=== PATIENT | male | born 1970 | race Two or more races ===

== ENCOUNTER 2017-01-11 12:45 | Inpatient (IN) | payer MEDICAID ==
[~2017-01-11] VITALS: Ht 177.8 cm; Wt 85.6 kg
[~2017-01-11 12:45] MED LIST: PROP60CA8 PO
[2017-01-11 13:44] LABS: Basophils # (auto) 0.1 uL; Eosinophils # (auto) 0 uL; Hemoglobin 8.3 g/dL (13.5-17.5); Lymphocytes # (auto) 0.9 uL; Monocytes # (auto) 0.8 uL; Neutrophils # (auto) 9.6 uL
[2017-01-11 13:46] LABS: Basophils % (auto) 0.9 % (0.0-2.0); Hematocrit 25.2 % (41.0-53.0); Mean Corpuscular Hgb Conc. 32.9 g/dL (32.0-36.0); Mean Corpuscular Volume 91.2 fL (80.0-100.0); Mean Platelet Volume 8.1 fL (6.9-10.8); Monocytes % (auto) 7.1 % (0.0-12.0); Platelet Count (auto) 178 10^3/uL (140-450); Red Cell Distribution Width 19.2 % (11.8-14.3); White Blood Cell 11.4 10^3/uL (4.4-10.8)
[2017-01-11] MEDS ORDERED: SODIUM CHLORIDE 0.9% 1,000 ML IV ONE ×2 (14:05→23:30)
[2017-01-11 14:06] LABS: Albumin 3.2 g/dL (3.4-5.0); Total Protein 7.5 g/dL (6.4-8.2)
[2017-01-11] MEDS ORDERED: PANTOPRAZOLE 80 MG in SODIUM CHL 0.9% 60 ML IV ONE ×2 (14:15→23:30)
[2017-01-11] MEDS ORDERED: PANTOPRAZOLE 40 MG TAB PO ONE (14:15)
[2017-01-11] MEDS ORDERED: THIAMINE INJ 100 MG, MULTIPLE VITAMIN 10 ML, FOLIC ACID 1 MG, MAGNESIUM SULF SDV 50% 8 ... IV ONE ×5 (15:00)
[2017-01-11] MEDS ORDERED: PROMETHAZINE HCL 25 MG/ML 1ML IV ONE (15:15)
[2017-01-11 15:35] LABS: Magnesium 1.3 mg/dL (1.6-2.6)
[2017-01-11 15:43] LABS: INR 1.13 (0.9-1.15); Partial Thromboplastin Time 24.3 sec (22.64-33.71); Prothrombin Time 12.3 sec (9.37-12.3)
[2017-01-11] MEDS ORDERED: PROCHLORPERAZINE EDISYLATE 5 MG/ML 2ML VIAL IV ONE (15:45)
[2017-01-11] MEDS ORDERED: LACTULOSE 20Gm/30ML SOLN PO ONE (16:15)
[2017-01-11] MEDS ORDERED: POTASSIUM CHL 10% (20 MEQ/15ML) 15ml ORAL SOLN PO ONE (16:15)
[2017-01-11] MEDS: MAGNESIUM SULFATE 1GM/100ML 100 ML IV SCH ×3 (17:07→18:16)
[2017-01-11 22:35] LABS: Urine Bilirubin Negative (Negative); Urine Blood Negative /uL (Negative); Urine Color Yellow (Yellow); Urine Glucose Normal (Normal); Urine Ketone 1+ (Negative); Urine Mucus FEW (None Seen); Urine Nitrite Negative (Negative); Urine RBC <1 /hpf (0 - 3); Urine Urobilinogen Normal (Negative); Urine pH 5.5 (5.0-8.0)
[2017-01-11] MEDS ORDERED: PANTOPRAZOLE 40 MG/10 ML VIAL IV ONE (23:21)
[2017-01-12] VITALS (8 sets, daily range): BP systolic 118–128; BP diastolic 59–78
[2017-01-12] MEDS ORDERED: cefTRIAXone 1GM/50ML D5W 50 ML IV ONE
[2017-01-12] MEDS ORDERED: ONDANSETRON HCL 4 MG/2 ML VIAL IV PRN
[2017-01-12] MEDS: SODIUM CHLORIDE 0.9% 1,000 ML IV SCH ×3 (00:45→20:12)
[2017-01-12] MEDS ORDERED: OCTREOTIDE ACETATE 500 MCG/ML VL ONE (00:48)
[2017-01-12] MEDS: OCTREOTIDE ACETATE 500 MCG in SODIUM CHL 0.9% 99 ML IV SCH ×3 (01:04→19:57)
[2017-01-12] MEDS ORDERED: LORazepam 2MG/ML-1ML VIAL IV PRN (03:15)
[2017-01-12 06:10] LABS: Basophils # (auto) 0.2 uL; Basophils % (auto) 1.5 % (0.0-2.0); Eosinophils # (auto) 0.4 uL; Lymphocytes # (auto) 1.5 uL; Lymphocytes % (auto) 13.6 % (10.0-50.0); Mean Corpuscular Volume 90.6 fL (80.0-100.0)
[2017-01-12 06:15] LABS: Eosinophils % (auto) 3.4 % (0.0-7.0); Hematocrit 20.6 % (41.0-53.0); Mean Corpuscular Hgb Conc. 33.1 g/dL (32.0-36.0); Mean Platelet Volume 8.2 fL (6.9-10.8); Monocytes # (auto) 0.9 uL; Monocytes % (auto) 7.8 % (0.0-12.0); Neutrophils # (auto) 8.2 uL; Neutrophils % (auto) 73.7 % (37.0-80.0); Platelet Count (auto) 145 10^3/uL (140-450); Red Cell Distribution Width 19.7 % (11.8-14.3); White Blood Cell 11.1 10^3/uL (4.4-10.8)
[2017-01-12 06:19] LABS: Hemoglobin 6.8 g/dL (13.5-17.5)
[2017-01-12 06:28] LABS: Albumin 2.8 g/dL (3.4-5.0); BUN/Creatinine Ratio 36.1; Calcium 7.1 mg/dL (8.5-10.1); Potassium 3.1 mmol/L (3.5-5.1); Total Protein 6.4 g/dL (6.4-8.2)
[2017-01-12 11:18] LABS: Hematocrit 22.1 % (41.0-53.0); Hemoglobin 7.3 g/dL (13.5-17.5)
[2017-01-12] MEDS: LACTULOSE 20Gm/30ML SOLN PO SCH ×2 (11:21→22:36)
[2017-01-12] MEDS: chlordiazePOXIDE HCL 25 MG CAP PO PRN ×3 (11:22→22:48)
[2017-01-12] MEDS: PANTOPRAZOLE 40 MG/10 ML VIAL IV SCH ×2 (11:22→22:36)
[2017-01-12] MEDS: THIAMINE INJ 100 MG, MULTIPLE VITAMIN 10 ML, FOLIC ACID 1 MG, MAGNESIUM SULF SDV 50% 8 ... IV SCH ×5 (12:10)
[2017-01-12] MEDS: HYDROmorphone HCL 2 MG/ML VL IV PRN ×2 (16:17→20:25)
[2017-01-12 18:28] LABS: Hematocrit 23.1 % (41.0-53.0); Hemoglobin 7.7 g/dL (13.5-17.5)
[2017-01-12] MEDS: POTASSIUM CHL 20 Meq TABLET PO SCH (22:36)
[2017-01-13] VITALS (10 sets, daily range): BP systolic 123–142; BP diastolic 62–78
[2017-01-13 00:40] LABS: Hematocrit 21.1 % (41.0-53.0)
[2017-01-13] MEDS: HYDROmorphone HCL 2 MG/ML VL IV PRN ×2 (00:48→20:55)
[2017-01-13 00:59] LABS: Hemoglobin 6.9 g/dL (13.5-17.5)
[2017-01-13] MEDS: SODIUM CHLORIDE 0.9% 1,000 ML IV SCH (05:43)
[2017-01-13] MEDS: OCTREOTIDE ACETATE 500 MCG in SODIUM CHL 0.9% 99 ML IV SCH (05:59)
[2017-01-13 10:00] LABS: Hematocrit 26.6 % (41.0-53.0); Hemoglobin 8.8 g/dL (13.5-17.5)
[2017-01-13] MEDS: POTASSIUM CHL 20 Meq TABLET PO SCH ×2 (10:00→20:53)
[2017-01-13] MEDS: LACTULOSE 20Gm/30ML SOLN PO SCH ×2 (10:00→20:55)
[2017-01-13] MEDS ORDERED: SODIUM CHLORIDE LOCK 10 ML ONE (10:05)
[2017-01-13] MEDS ORDERED: LIDOCAINE VISCOUS 2% 15ML UD ONE (10:05)
[2017-01-13] MEDS ORDERED: diphenhdrAMINE HCL 50 MG/1 ML VL ONE (10:06)
[2017-01-13] MEDS ORDERED: fentaNYL CITRATE 100 MCG/2 ML VL ONE (10:06)
[2017-01-13] MEDS ORDERED: MIDAZOLAM HCL 5 MG/ML-1ML VIAL ONE (10:06)
[2017-01-13] MEDS ORDERED: NALOXONE HCL 0.4 MG/ML VIAL ONE (10:07)
[2017-01-13] MEDS ORDERED: FLUMAZENIL 0.1 MG/ML INJ 10ML MDV IV ONE (10:07)
[2017-01-13 10:35] LABS: BUN/Creatinine Ratio 14.5; Calcium 7.1 mg/dL (8.5-10.1); Potassium 3.9 mmol/L (3.5-5.1)
[2017-01-13] MEDS ORDERED: CIPROFLOXACIN HCL 500 MG TAB PO ONE (12:30)
[2017-01-13] MEDS: THIAMINE INJ 100 MG, MULTIPLE VITAMIN 10 ML, FOLIC ACID 1 MG, MAGNESIUM SULF SDV 50% 8 ... IV SCH ×5 (13:21)
[2017-01-13 14:05] LABS: Hematocrit 28.7 % (41.0-53.0); Hemoglobin 9.4 g/dL (13.5-17.5)
[2017-01-13] MEDS: PROPRANOLOL HCL 20 MG TAB PO SCH ×2 (14:13→20:54)
[2017-01-13 18:10] LABS: Hematocrit 27.3 % (41.0-53.0)
[2017-01-14 05:00] VITALS: BP 136/66
[2017-01-14] MEDS: HYDROmorphone HCL 2 MG/ML VL IV PRN ×2 (05:46→11:18)
[2017-01-14] MEDS: PROPRANOLOL HCL 20 MG TAB PO SCH (05:46)
[2017-01-14] MEDS: SODIUM CHLORIDE 0.9% 1,000 ML IV SCH ×2 (05:48→05:49)
[2017-01-14 06:45] LABS: Calcium 7.4 mg/dL (8.5-10.1); Potassium 3.4 mmol/L (3.5-5.1)
[2017-01-14 06:48] LABS: BUN/Creatinine Ratio 7.8
[2017-01-14 08:51] VITALS: BP 131/76
[2017-01-14] MEDS: POTASSIUM CHL 20 Meq TABLET PO SCH (10:00)
[2017-01-14] MEDS: LACTULOSE 20Gm/30ML SOLN PO SCH (10:00)
[2017-01-14] MEDS ORDERED: CIPROFLOXACIN HCL 500 MG TAB PO SCH ×2 (10:00→22:00)
[2017-01-14 13:24] VITALS: BP 142/89
[2017-01-14 14:00] VITALS: BP 136/66
[2017-01-26] MEDS ORDERED: LACT10SO3 PO (17:37)
[2017-01-26] MEDS ORDERED: PROP60CA8 PO (19:00)
[2017-01-26] MEDS ORDERED: PROP1TAB59 PO (19:00)
[2017-01-28] MEDS ORDERED: CIP250T PO (11:47)
[2017-01-28] MEDS ORDERED: MULTTAB99 PO (11:47)
[2017-01-28] MEDS ORDERED: GABA-497 PO (11:47)
[2017-01-28] MEDS ORDERED: AML5T PO (11:47)
== END 2017-01-14 15:04 | disposition home or self-care (01) | DRG 280 ==
LOC: ER 12:45 → OVERFLOW 12:46 → EAST 01-12 10:01
PROVIDERS: ADMIT Nurse Practitioner Family; ATTEND Internal Medicine Pulmonary Disease
PROC: 30233N1 Transfusion of Nonautologous Red Blood Cells into Peripheral Vein, Percutaneous Approach (ICD-10-PCS; 2017-01-12)
PROC: 0DJ08ZZ Inspection of Upper Intestinal Tract, Via Natural or Artificial Opening Endoscopic (ICD-10-PCS; principal; 2017-01-13 11:48)
DX: K70.30 Alcoholic cirrhosis of liver without ascites (principal); K76.6 Portal hypertension; K72.90 Hepatic failure, unspecified without coma; I85.10 Secondary esophageal varices without bleeding; E44.1 Mild protein-calorie malnutrition; E83.42 Hypomagnesemia; D50.0 Iron deficiency anemia secondary to blood loss (chronic); F10.10 Alcohol abuse, uncomplicated; E87.6 Hypokalemia; K31.89 Other diseases of stomach and duodenum; F17.210 Nicotine dependence, cigarettes, uncomplicated; K80.20 Calculus of gallbladder without cholecystitis without obstruction; N20.0 Calculus of kidney; Z90.81 Acquired absence of spleen; Z87.442 Personal history of urinary calculi; Z83.3 Family history of diabetes mellitus; Z68.27 Body mass index [BMI] 27.0-27.9, adult
CPT/HCPCS: 36415; 43235; 80048; 80053; 81001; 82140; 83690; 83735; 85014; 85018; 85025; 85610; 85730; 86850; 86900; 86901; 86920; 93005; 94761; 96365; 96375; C9113; J0696; J2250; J2405

== ENCOUNTER 2019-02-19 21:09 | Emergency (ER) | payer MEDICAID ==
[~2019-02-19] VITALS: Ht 177.8 cm; Wt 113.4 kg
[~2019-02-19 21:09] MED LIST changes: +AML5T PO; +CIP250T PO; +GABA300C10 PO; +LACT10SO3 PO; +MULTTAB99 PO; +PROP1TAB59 PO; -PROP60CA8 PO
[2019-02-19 22:15] LABS: Basophils # (auto) 0.1 uL
[2019-02-19 22:21] LABS: Monocytes # (auto) 0.8 uL
[2019-02-19 22:23] LABS: Basophils % (auto) 0.8 % (0.0-2.0); Eosinophils # (auto) 0.3 uL; Eosinophils % (auto) 3.8 % (0.0-7.0); Hematocrit 46.4 % (41.0-53.0); Hemoglobin 15.6 g/dL (13.5-17.5); Lymphocytes % (auto) 22.6 % (10.0-50.0); Mean Corpuscular Hgb Conc. 33.7 g/dL (32.0-36.0); Mean Corpuscular Volume 103.9 fL (80.0-100.0); Monocytes % (auto) 8.7 % (0.0-12.0); Neutrophils # (auto) 5.7 uL; Neutrophils % (auto) 64.1 % (37.0-80.0); Nucleated Red Blood Cells % 0.2 %; Platelet Count (auto) 164 10^3/uL (140-450); Red Blood Cells 4.46 10^6/uL (4.5-5.90); Red Cell Distribution Width 15.8 % (11.8-14.3)
[2019-02-19 22:30] LABS: Salicylate < 1.7 mg/dL (2.8-20.0)
[2019-02-19] MEDS ORDERED: THIAMINE INJ 100 MG in SODIUM CHLORIDE 0.9% 1,000 ML IV ONE (22:30)
[2019-02-19] MEDS ORDERED: SODIUM CHLORIDE 0.9% 1,000 ML IV ONE (22:30)
[2019-02-19 22:31] LABS: Albumin 3.2 g/dL (3.4-5.0); BUN/Creatinine Ratio 11.6; Calcium 8.4 mg/dL (8.5-10.1); Potassium 3.4 mmol/L (3.5-5.1)
[2019-02-19 22:35] LABS: Bilirubin, Total 0.7 mg/dL (0.2-1.0); Total Protein 8.7 g/dL (6.4-8.2)
[2019-02-19 22:43] LABS: Acetaminophen < 2.0 ug/mL (10-30)
[2019-02-19] MEDS ORDERED: THIAMINE 100mg/ml INJ (200mg/2ml VIAL) IV ONE (22:45)
[2019-02-19] MEDS: SODIUM CHLORIDE 0.9% 1,000 ML IV ONE ×2 (23:23→23:55)
[2019-02-19 23:45] LABS: Urine Bacteria NONE SEEN /hpf (None Seen); Urine Blood 3+ /uL (Negative); Urine Mucus FEW (None Seen); Urine Specific Gravity 1.007 (1.001-1.035); Urine WBC 2 /hpf (0 - 3)
[2019-02-20 00:01] LABS: Amphetamine Screen, Urine NEGATIVE (NEGATIVE); Barbiturate Scree,Urine NEGATIVE (NEGATIVE); Benzodiazephine Screen, Urine NEGATIVE (NEGATIVE); Cannabinoid Screen, Urine NEGATIVE (NEGATIVE); Cocaine Screen, Urine NEGATIVE (NEGATIVE); Opiate Scree,Urine NEGATIVE (NEGATIVE); Phencyclidine Screen, Urine NEGATIVE (NEGATIVE)
[2019-02-20 01:30] VITALS: BP 111/65
== END 2019-02-20 02:59 | disposition home or self-care (01) ==
LOC: EDBD 21:09 → ER 21:12
DX: F10.129 Alcohol abuse with intoxication, unspecified (principal); F17.210 Nicotine dependence, cigarettes, uncomplicated; J45.909 Unspecified asthma, uncomplicated; Y90.0 Blood alcohol level of less than 20 mg/100 ml
CPT/HCPCS: 36415; 80053; 80307; 80320; 80329; 81001; 85025; 96374; 99283; J3411; J7030

== ENCOUNTER 2020-01-11 09:43 | Emergency (ER) | payer MEDICAID ==
[~2020-01-11] VITALS: Ht 182.9 cm; Wt 99.8 kg
[2020-01-11 10:42] LABS: Basophils # (auto) 0.1 10 ^3/uL (0-0.2); Basophils % (auto) 1.3 % (0.0-2.0); Eosinophils # (auto) 0.2 10 ^3/uL (0-0.8); Eosinophils % (auto) 2.8 % (0.0-7.0); Hemoglobin 11.4 g/dL (13.5-17.5); Lymphocytes # (auto) 1.5 10 ^3/uL (0.4-5.4); Lymphocytes % (auto) 21.9 % (10.0-50.0); Mean Corpuscular Hemoglobin 36.6 pg (28.0-32.0); Mean Corpuscular Hgb Conc. 34.5 g/dL (32.0-36.0); Mean Corpuscular Volume 106.1 fL (80.0-100.0); Monocytes # (auto) 0.4 10 ^3/uL (0-1.3); Monocytes % (auto) 6.3 % (0.0-12.0); Neutrophils # (auto) 4.6 10 ^3/uL (1.6-8.6); Neutrophils % (auto) 67.7 % (37.0-80.0); Nucleated Red Blood Cells % 0.3 %; Platelet Count (auto) 110 10^3/uL (140-450); Red Blood Cells 3.11 10^6/uL (4.5-5.90); Red Cell Distribution Width 17.6 % (11.8-14.3); White Blood Cell 6.8 10^3/uL (4.4-10.8)
[2020-01-11] MEDS ORDERED: SODIUM CHLORIDE 0.9% 1,000 ML IV ONE (10:45)
[2020-01-11 10:46] LABS: Albumin 2.4 g/dL (3.4-5.0); Calcium 7.9 mg/dL (8.5-10.1); Magnesium 2.1 mg/dL (1.6-2.6); Potassium 3.3 mmol/L (3.5-5.1)
[2020-01-11 10:50] LABS: BUN/Creatinine Ratio 7.1; Bilirubin, Total 4.2 mg/dL (0.2-1.0); Total Protein 7.9 g/dL (6.4-8.2)
[2020-01-11 10:56] LABS: Acetaminophen < 2.0 ug/mL (10-30); Salicylate < 1.7 mg/dL (2.8-20.0)
[2020-01-11] MEDS ORDERED: LIDOCAINE 1% (LOCAL ANESTH.) PF 5ml SDV ID ONE (11:15)
[2020-01-11] MEDS ORDERED: NEOMYCIN-BACITRACIN-POLYM UNITDOSE PKG TOP OINT TOP ONE (11:15)
[2020-01-11 16:05] VITALS: BP 119/64
== END 2020-01-11 16:23 | disposition home or self-care (01) ==
LOC: ER 09:43 → EDBD 09:43 → ER 16:23
DX: S02.2XXA Fracture of nasal bones, initial encounter for closed fracture (principal); S09.8XXA Other specified injuries of head, initial encounter; F10.10 Alcohol abuse, uncomplicated; F17.210 Nicotine dependence, cigarettes, uncomplicated; Z79.899 Other long term (current) drug therapy; W19.XXXA Unspecified fall, initial encounter; Y93.89 Activity, other specified; Y92.89 Other specified places as the place of occurrence of the external cause; Y99.8 Other external cause status
CPT/HCPCS: 36415; 70450; 70486; 71045; 72125; 80053; 80320; 80329; 83735; 85025; 93005; 96360; 99285; J7030

== ENCOUNTER 2020-01-15 16:26 | Emergency (ER) | payer MEDICAID ==
[~2020-01-15] VITALS: Ht 177.8 cm; Wt 81.6 kg
[2020-01-15] MEDS ORDERED: cefTRIAXone W LIDOCAINE 1 GM IM IM ONE (17:15)
[2020-01-15 18:00] VITALS: BP 114/48
== END 2020-01-15 18:18 | disposition home or self-care (01) ==
LOC: EDBD 16:26 → ER 16:26 → EDUNIT# 16:26 → ER 18:18
DX: S01.81XD Laceration without foreign body of other part of head, subsequent encounter (principal); F17.210 Nicotine dependence, cigarettes, uncomplicated; Z79.899 Other long term (current) drug therapy; X58.XXXD Exposure to other specified factors, subsequent encounter
CPT/HCPCS: 96372; 99283; J0696

== ENCOUNTER 2020-02-26 14:23 | Inpatient (IN) | payer MEDICAID ==
[~2020-02-26] VITALS: Ht 175.3 cm; Wt 79.4 kg
[2020-02-26 16:05] LABS: Albumin 1.6 g/dL (3.4-5.0); BUN/Creatinine Ratio 8.4; Calcium 7.5 mg/dL (8.5-10.1); Potassium 4.7 mmol/L (3.5-5.1)
[2020-02-26 16:10] LABS: Bilirubin, Total 5.7 mg/dL (0.2-1.0); Total Protein 4.9 g/dL (6.4-8.2)
[2020-02-26] MEDS ORDERED: SODIUM CHLORIDE 0.9% 2,000 ML IV ONE (16:30)
[2020-02-26] MEDS ORDERED: THIAMINE 100mg/ml INJ (200mg/2ml VIAL) IV ONE (17:00)
[2020-02-26] MEDS ORDERED: FOLIC ACID 1 MG, MULTIPLE VITAMIN 10 ML, MAGNESIUM SULF SDV 50% 8 MEQ, THIAMINE INJ 100... INJ STA ×5 (17:00)
[2020-02-26] MEDS ORDERED: LACTULOSE 20Gm/30ML SOLN PO ONE (17:00)
[2020-02-26] MEDS: NOREPINEPHRINE 8 MG/250ML KIT 250 ML IV SCH (17:47)
[2020-02-26] MEDS ORDERED: LORazepam 2MG/ML-1ML VIAL IV PRN (18:15)
[2020-02-26] MEDS ORDERED: MAGNESIUM SULFATE 1GM/100ML 100 ML IV SCH (18:15)
[2020-02-26] MEDS ORDERED: NITROGLYCERIN 0.4 MG SL TAB SL PRN (18:15)
[2020-02-26] MEDS ORDERED: MORPHINE SULF INJ 2 MG/ML SYRINGE 1ML IV PRN ×2 (18:15→18:30)
[2020-02-26] MEDS ORDERED: ACETAMINOPHEN 325 MG TAB PO PRN (18:30)
[2020-02-26] MEDS ORDERED: ONDANSETRON HCL 4 MG/2 ML VIAL IV PRN (18:30)
[2020-02-26] MEDS: cefTRIAXone 1GM/50ML D5W 50 ML IV SCH (18:56)
[2020-02-26 19:28] LABS: Hematocrit 12.2 % (41.0-53.0); Mean Corpuscular Hemoglobin 39.6 pg (28.0-32.0); Mean Corpuscular Hgb Conc. 32.3 g/dL (32.0-36.0); Mean Corpuscular Volume 122.4 fL (80.0-100.0); Platelet Count (auto) 58 10^3/uL (140-450); Red Cell Distribution Width 18.7 % (11.8-14.3)
[2020-02-26 19:44] LABS: INR 2.47 (0.9-1.15)
[2020-02-26 19:46] LABS: Basophils % (manual) 0 (0.0-2.0); Blast Cells 0; Eosinophils % (manual) 0 (0-7); Metamyelocytes % 0; Myelocytes % 0; Promyelocytes % 0; Reactive Lymphocytes 0
[2020-02-26 20:05] LABS: Band Neutrophils % (manual) 5; Lymphocytes % (manual) 8 (10.0-50.0); Monocytes % (manual) 6 (0-12)
[2020-02-26] MEDS: MAGNESIUM SULFATE 1GM/100ML 100 ML IV SCH ×2 (21:15→23:01)
[2020-02-26] MEDS: SODIUM BICARBONATE 50ML VIAL 50 ML in D5W/SOD CHL 0.45% 1,000 ML IV SCH (21:15)
[2020-02-26] MEDS ORDERED: LACTULOSE 20Gm/30ML SOLN PO SCH (22:00)
[2020-02-26] MEDS: chlordiazePOXIDE HCL 5 MG CAP PO SCH (23:10)
[2020-02-26 23:37] VITALS: BP 105/33
[2020-02-26 23:55] VITALS: BP 111/24
[2020-02-27] VITALS (18 sets, daily range): BP systolic 67–133; BP diastolic 10–71
[2020-02-27] MEDS: SODIUM BICARBONATE 50ML VIAL 50 ML in D5W/SOD CHL 0.45% 1,000 ML IV SCH ×2 (04:45→14:35)
[2020-02-27] MEDS: chlordiazePOXIDE HCL 5 MG CAP PO SCH ×2 (06:25→14:35)
[2020-02-27] MEDS: cefTRIAXone 1GM/50ML D5W 50 ML IV SCH (08:46)
[2020-02-27 10:58] LABS: Hemoglobin 7.2 g/dL (13.5-17.5)
[2020-02-27 11:01] LABS: Hematocrit 22.8 % (41.0-53.0); Mean Corpuscular Hemoglobin 32.6 pg (28.0-32.0); Mean Corpuscular Hgb Conc. 31.5 g/dL (32.0-36.0); Mean Corpuscular Volume 103.4 fL (80.0-100.0); Platelet Count (auto) 50 10^3/uL (140-450); Red Blood Cells 2.21 10^6/uL (4.5-5.90); White Blood Cell 17.8 10^3/uL (4.4-10.8)
[2020-02-27 11:14] LABS: Red Cell Distribution Width 20.9 % (11.8-14.3)
[2020-02-27 11:15] LABS: Albumin 1.8 g/dL (3.4-5.0); Basophils % (manual) 0 (0.0-2.0); Blast Cells 0; Calcium 7.9 mg/dL (8.5-10.1); Eosinophils % (manual) 0 (0-7); Magnesium 2.9 mg/dL (1.6-2.6); Metamyelocytes % 0; Myelocytes % 0; Promyelocytes % 0; Reactive Lymphocytes 0
[2020-02-27 11:23] LABS: Bilirubin, Total 7.3 mg/dL (0.2-1.0); Total Protein 5.2 g/dL (6.4-8.2)
[2020-02-27 11:34] LABS: Band Neutrophils % (manual) 3; Lymphocytes % (manual) 7 (10.0-50.0); Monocytes % (manual) 5 (0-12)
[2020-02-27] MEDS ORDERED: FOLIC ACID 1 MG, MULTIPLE VITAMIN 10 ML, MAGNESIUM SULF SDV 50% 8 MEQ, THIAMINE INJ 100... INJ SCH ×5 (12:00)
[2020-02-27] MEDS: NOREPINEPHRINE 8 MG/250ML KIT 250 ML IV SCH ×2 (12:24→22:00)
[2020-02-27] MEDS ORDERED: LACTULOSE 20Gm/30ML SOLN PO SCH (14:00)
[2020-02-27] MEDS: MIDAZOLAM DRIP 50 mg/50mL 50 ML IV SCH (16:00)
[2020-02-27] MEDS ORDERED: LORazepam 2MG/ML-1ML VIAL ONE (16:18)
[2020-02-27] MEDS ORDERED: PROPOFOL 100 ML IV ONE (16:20)
[2020-02-27] MEDS ORDERED: OCTREOTIDE ACETATE 100 MCG in SODIUM CHL 0.9% 50 ML IV ONE (17:00)
[2020-02-27] MEDS ORDERED: PROPOFOL 100 ML IV SCH (17:00)
[2020-02-27] MEDS ORDERED: PANTOPRAZOLE 40 MG/10 ML VIAL INJ IV SCH (17:00)
[2020-02-27] MEDS ORDERED: OCTREOTIDE ACETATE 500 MCG in SODIUM CHL 0.9% 99 ML IV SCH (17:00)
[2020-02-27] MEDS: OCTREOTIDE ACETATE 500 MCG in SODIUM CHL 0.9% 99 ML IV SCH (17:21)
[2020-02-27] MEDS: DOPamine 1600MCG/ML D5W 250 ML IV SCH (18:32)
[2020-02-27] MEDS ORDERED: SODIUM BICARBONATE 8.4 % INJ 50ML VIAL IV ONE (19:00)
[2020-02-27] MEDS ORDERED: SODIUM BICARBONATE 8.4% INJ 50ML SYRINGE ONE (19:35)
[2020-02-27] MEDS ORDERED: PHENYLEPHRINE IV 250 ML IV ONE (20:16)
[2020-02-27] MEDS ORDERED: EPINEPHrine HCL 1 MG/10 ML SYRG IV ONE (20:27)
[2020-02-27] MEDS ORDERED: SODIUM BICARBONATE 8.4% INJ 50ML SYRINGE IV ONE (20:27)
[2020-02-27] MEDS ORDERED: VASOPRESSIN 50 UNITS in D5W 5% 247.5 ML IV SCH (20:45)
[2020-02-27 20:49] LABS: Urine Bacteria FEW /hpf (None Seen); Urine Blood 2+ /uL (Negative); Urine Hyaline Cast MANY /lpf (0 - 2); Urine Mucus FEW (None Seen); Urine WBC 14 /hpf (0 - 3)
[2020-02-27 20:53] LABS: Sodium Urine < 5 mmol/L (40-220)
[2020-02-27 20:58] LABS: Hematocrit 17.3 % (41.0-53.0); Mean Corpuscular Hemoglobin 34.2 pg (28.0-32.0); Mean Corpuscular Hgb Conc. 28.9 g/dL (32.0-36.0); Mean Corpuscular Volume 118.3 fL (80.0-100.0); Platelet Count (auto) 41 10^3/uL (140-450); Red Blood Cells 1.46 10^6/uL (4.5-5.90); White Blood Cell 12.4 10^3/uL (4.4-10.8)
[2020-02-27 21:01] LABS: Amphetamine Screen, Urine NEGATIVE (NEGATIVE); Barbiturate Scree,Urine NEGATIVE (NEGATIVE); Benzodiazephine Screen, Urine NEGATIVE (NEGATIVE); Cannabinoid Screen, Urine NEGATIVE (NEGATIVE); Cocaine Screen, Urine NEGATIVE (NEGATIVE); Creatinine, Urine 301 mg/dL (30.0-125.0); Opiate Scree,Urine NEGATIVE (NEGATIVE); Phencyclidine Screen, Urine NEGATIVE (NEGATIVE)
[2020-02-27 21:10] LABS: Red Cell Distribution Width 22.3 % (11.8-14.3)
[2020-02-27 21:13] LABS: Basophils % (manual) 0 (0.0-2.0); Blast Cells 0; Eosinophils % (manual) 0 (0-7); Promyelocytes % 0; Reactive Lymphocytes 0
[2020-02-27 21:35] LABS: Albumin 1.2 g/dL (3.4-5.0); BUN/Creatinine Ratio 6.5; Calcium 7.1 mg/dL (8.5-10.1)
[2020-02-27 21:38] LABS: Bilirubin, Total 4.3 mg/dL (0.2-1.0); Total Protein 3.7 g/dL (6.4-8.2)
[2020-02-27 21:50] LABS: Potassium 6.5 mmol/L (3.5-5.1)
[2020-02-27] MEDS ORDERED: rifAXIMin 550 MG TAB PO SCH (22:00)
[2020-02-27] MEDS ORDERED: DEXTROSE 50% SYRINGE 50 ML IV ONE ×2 (22:06→22:40)
[2020-02-28] VITALS (10 sets, daily range): BP systolic 69–108; BP diastolic 28–55
[2020-02-28 00:52] LABS: Band Neutrophils % (manual) 7; Lymphocytes % (manual) 20 (10.0-50.0)
[2020-02-28 00:53] LABS: Metamyelocytes % 3; Monocytes % (manual) 1 (0-12); Myelocytes % 1
[2020-02-28] MEDS: MIDAZOLAM DRIP 50 mg/50mL 50 ML IV SCH ×2 (01:00→05:00)
[2020-02-28] MEDS: SODIUM BICARBONATE 50ML VIAL 50 ML in D5W/SOD CHL 0.45% 1,000 ML IV SCH (01:45)
[2020-02-28] MEDS ORDERED: PANTOPRAZOLE 40mg/50ML NS AE 50 ML IV SCH (02:15)
[2020-02-28] MEDS: PHENYLEPHRINE IV 250 ML IV SCH ×2 (02:15→05:03)
[2020-02-28] MEDS ORDERED: SODIUM BICARBONATE 8.4% INJ 50ML SYRINGE ONE (02:51)
[2020-02-28] MEDS ORDERED: DEXTROSE (50%) 50ML SYRG IV ONE (03:00)
[2020-02-28] MEDS ORDERED: InsuLIN REG 1unit/0.01ml Soln (100units/ml) IV ONE (03:00)
[2020-02-28] MEDS ORDERED: CALCIUM GLUC 4.65meq/50ml D5AE 50 ML IV ONE (03:00)
[2020-02-28] MEDS ORDERED: SODIUM BICARBONATE 8.4% INJ 50ML SYRINGE IV ONE ×2 (03:00→13:24)
[2020-02-28] MEDS: OCTREOTIDE ACETATE 500 MCG in SODIUM CHL 0.9% 99 ML IV SCH (03:24)
[2020-02-28] MEDS: DOPamine 1600MCG/ML D5W 250 ML IV SCH ×3 (04:21→05:03)
[2020-02-28] MEDS ORDERED: EPINEPHrine HCL 250 ML IV ONE (04:56)
[2020-02-28] MEDS ORDERED: EPINEPHrine HCL 250 ML IV SCH (05:00)
[2020-02-28] MEDS ORDERED: ATROPINE SULFATE 1 MG/1 ML VIAL ONE (06:04)
[2020-02-28] MEDS ORDERED: ATROPINE SULF 1 MG/10ml SYR IV ONE (06:45)
[2020-02-28 07:04] LABS: Hematocrit 16.2 % (41.0-53.0); Mean Corpuscular Hemoglobin 32.3 pg (28.0-32.0); Mean Corpuscular Hgb Conc. 28.5 g/dL (32.0-36.0); Mean Corpuscular Volume 113.4 fL (80.0-100.0); Red Blood Cells 1.43 10^6/uL (4.5-5.90); Red Cell Distribution Width 17.8 % (11.8-14.3); White Blood Cell 6.4 10^3/uL (4.4-10.8)
[2020-02-28 07:24] LABS: Hemoglobin 4.6 g/dL (13.5-17.5)
[2020-02-28 07:40] LABS: INR 4.16 (0.9-1.15)
[2020-02-28 07:43] LABS: Platelet Count (auto) 18 10^3/uL (140-450)
[2020-02-28 09:00] LABS: Chloride 97 mmol/L (98-107); Sodium 131 mmol/L (136-145)
[2020-02-28 09:39] LABS: Band Neutrophils % (manual) 1; Basophils % (manual) 0 (0.0-2.0); Blast Cells 0; Eosinophils % (manual) 0 (0-7); Lymphocytes % (manual) 47 (10.0-50.0); Metamyelocytes % 0; Monocytes % (manual) 3 (0-12); Myelocytes % 2; Promyelocytes % 0; Reactive Lymphocytes 0
[2020-02-28] MEDS ORDERED: SODIUM BICARBONATE 50ML VIAL 150 ML in D5W 5% 1,000 ML IV SCH (09:45)
[2020-02-28 10:12] LABS: Alanine Aminotransferase 264 U/L (16-61); Alkaline Phosphatase 74 U/L (45-117); Anion Gap 30 (5-15); BUN/Creatinine Ratio 6.4; Bilirubin, Total 2.4 mg/dL (0.2-1.0); Blood Urea Nitrogen 30 mg/dL (7-18); Calcium 6.2 mg/dL (8.5-10.1); GFR African American 17 mL/min; GFR Non-African American 14 mL/min; Glucose 385 mg/dL (74-106); Magnesium 3.3 mg/dL (1.6-2.6); Total Protein 2.4 g/dL (6.4-8.2)
[2020-02-28 10:17] LABS: Albumin 0.8 g/dL (3.4-5.0); Carbon Dioxide 4 mmol/L (21-32); Potassium 7.5 mmol/L (3.5-5.1)
[2020-02-28 11:26] LABS: Aspartate Aminotransferase 2201 U/L (15-37)
[2020-02-28 11:31] LABS: Phosphorus > 18.0 mg/dL (2.5-4.90)
[2020-02-28] MEDS ORDERED: EPINEPHrine HCL 1 MG/10 ML SYRG IV ONE (13:24)
== END 2020-02-28 06:50 | DRG 279 ==
LOC: EDSEX 14:23 → EDBD 14:23 → ER 14:23 → OVERFLOW 18:22
PROVIDERS: ADMIT Internal Medicine; ATTEND Internal Medicine
PROC: 30233N1 Transfusion of Nonautologous Red Blood Cells into Peripheral Vein, Percutaneous Approach (ICD-10-PCS; 2020-02-26)
PROC: 5A12012 Performance of Cardiac Output, Single, Manual (ICD-10-PCS; 2020-02-27)
PROC: 5A1935Z Respiratory Ventilation, Less than 24 Consecutive Hours (ICD-10-PCS; 2020-02-27)
PROC: 0BH17EZ Insertion of Endotracheal Airway into Trachea, Via Natural or Artificial Opening (ICD-10-PCS; 2020-02-27)
PROC: 30233K1 Transfusion of Nonautologous Frozen Plasma into Peripheral Vein, Percutaneous Approach (ICD-10-PCS; principal; 2020-02-28)
DX: K72.90 Hepatic failure, unspecified without coma (principal); N17.0 Acute kidney failure with tubular necrosis; K70.31 Alcoholic cirrhosis of liver with ascites; D69.6 Thrombocytopenia, unspecified; E87.2 Acidosis; E86.1 Hypovolemia; D68.9 Coagulation defect, unspecified; F10.239 Alcohol dependence with withdrawal, unspecified; I10 Essential (primary) hypertension; K76.7 Hepatorenal syndrome; J96.01 Acute respiratory failure with hypoxia; F32.9 Major depressive disorder, single episode, unspecified; E78.5 Hyperlipidemia, unspecified; E83.42 Hypomagnesemia; E88.09 Other disorders of plasma-protein metabolism, not elsewhere classified; F17.210 Nicotine dependence, cigarettes, uncomplicated; G92 Toxic encephalopathy; I46.9 Cardiac arrest, cause unspecified; I49.9 Cardiac arrhythmia, unspecified; Z20.828 Contact with and (suspected) exposure to other viral communicable diseases; K92.2 Gastrointestinal hemorrhage, unspecified; R57.1 Hypovolemic shock; Z80.0 Family history of malignant neoplasm of digestive organs; Z83.3 Family history of diabetes mellitus; D62 Acute posthemorrhagic anemia
CPT/HCPCS: 36415; 36600; 71045; 80053; 80307; 80320; 81001; 82140; 82570; 82805; 82962; 83690; 83735; 83880; 84100; 84300; 84484; 85007; 85025; 85027; 85610; 85730; 86850; 86900; 86901; 86920; 87070; 87077; 87205; 87426; 92950; 94002; 94003; 96361; 96365; 96367; 96375; 99291; C9113; G0378; J0171; J0461; J0610; J0696; J1815; J2250; J2704; J7060